=== PATIENT | male | born 1995 | race Caucasian/White ===

== ENCOUNTER 2018-08-22 13:56 | Emergency (ER) | payer BC, OTHER ==
--- NOTE | 2018-08-22 14:11 | EDPHY ---
H & P Stated Complaint: Migraine Time Seen by Provider: 08/22/18 14:10 HPI/ROS: HPI: This is a 22-year-old male who presents with Chief Complaint: Nausea, dizziness, migraine headache Location: Head Quality: Pain Duration: 2 hr prior to arrival Signs and Symptoms: no fever,+ nausea, no vomiting, + photophobia, no noise sensitivity, no neck stiffness, no ear pain, no tinnitus, no nasal congestion, no sinus pressure, no weakness, no radiation, no aura Timing: Acute, constant Severity: Moderate Context: Patient is a student at [employer], was riding his skateboard home this afternoon when he started to developed generalized headache that is described as not the worst of his life but "feels different than my usual migraine headaches." This headache is accompanied by nausea, generalized dizziness described as lightheadedness. Patient reports that he has had these headaches for the last several years and even has syncope associated with him. He denies any loss of consciousness, seizure-like activity. He ate a protein bar today and had "some water."Drink a beer last night but denies any drug use. Modifying Factors: None Comment: ROS: A comprehensive 10 system review of systems is otherwise negative aside from elements mentioned in the history of present illness. MEDICAL/SURGICAL/SOCIAL HISTORY: Medical history: Generally healthy. Does not take any regular medications. Surgical history: Denies Social history: Family history noncontributory. CONSTITUTIONAL: Well-developed, well-nourished, nontoxic-appearing, young adult white male, awake and alert, no obvious distress HEENT: Atraumatic and normocephalic, PERRL, EOMI. Nares patent; no rhinorrhea; no nasal mucosal edema. Tympanic membranes clear. Oropharynx clear, no exudate and moist pink mucosa. Airway patent. No lymphadenopathy. No meningismus. Cardiovascular: Normal S1/S2, regular rate, regular rhythm, without murmur rub or gallop. PULMONARY/CHEST: Symmetrical and nontender. Clear to auscultation bilaterally. Good air movement. No accessory muscle usage. ABDOMEN: Soft, nondistended, nontender, no rebound, no guarding, no peritoneal signs, no masses or organomegaly. No CVAT. EXTREMITIES: 2/2 pulses, strength 5/5, no deformities, no clubbing, no cyanosis or edema. NEUROLOGICAL: no focal neuro deficits. GCS 15. Cranial nerves 2-12 grossly intact. Mild swaying noted on Romberg test. SKIN: Warm and dry, no erythema. no rash. Good capillary refill. Source: Patient Exam Limitations: No limitations - Personal History Current Tetanus/Diphtheria Vaccine: Yes - Medical/Surgical History Hx Asthma: No Hx Chronic Respiratory Disease: No Hx Diabetes: No Hx Cardiac Disease: No Hx Renal Disease: No Hx Cirrhosis: No Hx Alcoholism: No Other PMH: Migraines, syncope - Social History Smoking Status: Heavy smoker Constitutional: Initial Vital Signs Temperature (C) 36.3 C 08/22/18 14:03 Heart Rate 86 08/22/18 14:03 Respiratory Rate 18 08/22/18 14:03 Blood Pressure 124/82 H 08/22/18 14:03 O2 Sat (%) 97 08/22/18 14:03 O2 Delivery Mode Room Air Allergies/Adverse Reactions: Penicillins Allergy (Verified 08/22/18 14:07) Home Medications: Medication Instructions Recorded Doxycycline Hyclate 08/22/18 Medical Decision Making - Diagnostics Imaging Results: Imaging Impressions Brain MRI 08/22/18 14:22 Impression: Normal MRI of the brain without and with contrast. Findings and recommendations discussed with Emergency Department physician, Lorrie RIDDLE at 16:34 hour, 08/22/2018. Final report concurs with initial preliminary interpretation. ED Course/Re-evaluation: Vital signs reviewed and stable upon arrival. No systemic signs. Positive Romberg test with dizziness and headache that feels different than normal migraine; MRI with and without contrast ordered for further evaluation Given 1 L normal saline, IV Decadron 10 mg, IV Reglan 10 mg, IV Benadryl 25 mg 1525: Laboratory studies reviewed. No signs of leukocytosis/anemia/platelet dysfunction/RUBINA/electrolyte imbalance. 1600: Reassessed patient who reports relief of symptoms. 1634: By Radiology, Dr. Olivares, who reports MRI of the brain shows no acute intracranial process. No sinusitis. Patient will be discharged home with student health follow-up as needed and work excuse provided. No signs of meningitis, sinusitis, thunderclap symptoms, aneurysm, mass This patient was seen under the supervision of my secondary supervising physician. I evaluated care for this patient with attending. Differential Diagnosis: Headache including but not limited to subarachnoid hemorrhage, migraine headache , tension headache and infectious causes such as meningitis, pharyngitis and sinusitis. - Data Points Laboratory Results: Laboratory Results 08/22/18 14:30 08/22/18 14:30 08/22/18 08/22/18 14:30 14:30 WBC 10.24 10^3/uL H 10^3/uL (3.80-9.50) RBC 5.84 10^6/uL 10^6/uL (4.40-6.38) Hgb 17.3 g/dL g/dL (13.7-17.5) Hct 47.8 % % (40.0-51.0) MCV 81.8 fL fL (81.5-99.8) MCH 29.6 pg pg (27.9-34.1) MCHC 36.2 g/dL g/dL (32.4-36.7) RDW 12.2 % % (11.5-15.2) Plt Count 225 10^3/uL 10^3/uL (150-400) MPV 11.3 fL fL (8.7-11.7) Neut % (Auto) 62.0 % % (39.3-74.2) Lymph % (Auto) 30.6 % % (15.0-45.0) [place] % (Auto) 6.5 % % (4.5-13.0) Eos % (Auto) 0.4 % L % (0.6-7.6) Baso % (Auto) 0.3 % % (0.3-1.7) Nucleat RBC Rel Count 0.0 % % (0.0-0.2) Absolute Neuts (auto) 6.35 10^3/uL 10^3/uL (1.70-6.50) Absolute Lymphs (auto) 3.13 10^3/uL H 10^3/uL (1.00-3.00) Absolute Monos (auto) 0.67 10^3/uL 10^3/uL (0.30-0.80) Absolute Eos (auto) 0.04 10^3/uL 10^3/uL (0.03-0.40) Absolute Basos (auto) 0.03 10^3/uL 10^3/uL (0.02-0.10) Absolute Nucleated RBC 0.00 10^3/uL 10^3/uL (0-0.01) Immature Gran % 0.2 % % (0.0-1.1) Immature Gran # 0.02 10^3/uL 10^3/uL (0.00-0.10) Sodium 138 mEq/L mEq/L (135-145) Potassium 4.1 mEq/L mEq/L (3.5-5.2) Chloride 102 mEq/L mEq/L (97-110) Carbon Dioxide 24 mEq/l mEq/l (22-31) Anion Gap 12 mEq/L mEq/L (6-14) BUN 17 mg/dL mg/dL (7-23) Creatinine 0.9 mg/dL mg/dL (0.7-1.3) Estimated GFR > 60 Glucose 87 mg/dL mg/dL (70-100) Calcium 10.1 mg/dL mg/dL (8.5-10.4) Medications Given: Discontinued Medications Dexamethasone (Decadron Injection) 10 mg IVP EDNOW ONE Stop: 08/22/18 14:23 Last Admin: 08/22/18 14:34 Dose: 10 mg Diphenhydramine HCl (Benadryl Injection) 25 mg IVP EDNOW ONE Stop: 08/22/18 14:23 Last Admin: 08/22/18 14:35 Dose: 25 mg Sodium Chloride (Ns) 1,000 mls @ 0 mls/hr IV ONCE ONE; Wide Open PRN Reason: Protocol Stop: 08/22/18 14:23 Last Admin: 08/22/18 14:28 Dose: 1,000 mls Metoclopramide HCl (Reglan Injection) 10 mg IVP EDNOW ONE Stop: 08/22/18 14:23 Last Admin: 08/22/18 14:35 Dose: 10 mg Departure - Departure Disposition: Home, Routine, Self-Care Clinical Impression: Cephalgia Qualifiers: Headache type: unspecified Headache chronicity pattern: acute headache Intractability: not intractable Qualified Code(s): R51 - Headache Condition: Good Instructions: Migraine Headache (ED) Additional Instructions: Rest as much as possible until you are feeling better. Consume a minimum of 8-10 glasses of water or electrolyte fluid replacement drinks that include Gatorade, Powerade, Pedialyte. Take Tylenol 650 mg every 4 hours and/or Ibuprofen 600 mg every 8 hours with food as needed for pain. Return to the ER immediately if you have progressive headaches, neurologic deficits, gait abnormality, visual disturbance, slurred speech, or any other symptom that concerns you. Referrals: [facility] Funez,. [Clinic] - As per Instructions Stand Alone Forms: Work Excuse
[2018-08-22] MEDS ORDERED: NS 1,000 ML IV ONE (14:22)
[2018-08-22] MEDS ORDERED: METOCLOPRAMIDE 10 MG/2 ML VIAL IVP ONE (14:22)
[2018-08-22] MEDS ORDERED: DEXAMETHASONE 10 MG/ML VIAL IVP ONE (14:22)
[2018-08-22 14:36] LABS: PLATELET COUNT 225 10^3/uL (150-400)
[2018-08-22] MEDS ORDERED: GADOBUTROL 10 ML VIAL IVP ONE (16:07)
[2018-08-22 16:27] VITALS: BP 115/68
== END 2018-08-22 16:40 | disposition home or self-care (01) ==
DX: G43.909 Migraine, unspecified, not intractable, without status migrainosus (principal); E86.9 Volume depletion, unspecified
CPT/HCPCS: 96374; A9585; J1100; J1200; J2765